=== PATIENT | male | born 1955 | race Caucasian/White ===

== ENCOUNTER 2017-08-01 14:47 | Emergency (ER) | payer OTHER ==
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
[2017-08-01] MEDS ORDERED: METHOCARBAMOL 500 MG TAB ONE (17:25)
[2017-08-01] MEDS ORDERED: HYDROCODONE/APAP 10/325 TAB ONE (17:25)
--- NOTE | 2017-08-01 18:01 | RAD REPORT ---
EXAM DESCRIPTION: RAD - Elbow Right 3 View - 08/01/2017 3:15 pm CLINICAL HISTORY: Right elbow pain FINDINGS: No fracture or dislocation is seen
--- NOTE | 2017-08-01 18:02 | RAD REPORT ---
EXAM DESCRIPTION: RAD - Forearm Right - 08/01/2017 3:16 pm CLINICAL HISTORY: Right arm pain FINDINGS: No fracture is seen.
== END 2017-08-01 17:46 | disposition home or self-care (01) ==
LOC: ER 14:47
DX: S50.11XA Contusion of right forearm, initial encounter (principal); V43.52XA Car driver injured in collision with other type car in traffic accident, initial encounter; Y93.89 Activity, other specified; Y92.410 Unspecified street and highway as the place of occurrence of the external cause; Z88.0 Allergy status to penicillin; I10 Essential (primary) hypertension; E78.5 Hyperlipidemia, unspecified
CPT/HCPCS: 99285

== ENCOUNTER 2023-09-06 19:09 | Emergency (ER) | payer OTHER ==
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
--- NOTE | 2023-09-06 19:34 | ER ---
Nurse's Notes [facility] Name: Eleno Genao Age: 68 yrs Sex: Male : 1955 Arrival Date: 09/06/2023 Time: 19:09 Bed IW2 Private MD: Diagnosis: Superficial laceration of the face 1 cm Presentation: 09/05 19:26 Chief complaint: Patient states: Cut by the corner of the truck's door on the left nj1 cheek when the door got caught by the wind. Non active bleeding noted. Coronavirus screen: Vaccine status: Patient reports receiving the 2nd dose of the covid vaccine. Ebola Screen: Patient denies travel to an Ebola-affected area in the 21 days before illness onset. Initial Sepsis Screen: Does the patient meet any 2 criteria? No. Patient's initial sepsis screen is negative. Does the patient have a suspected source of infection? No. Patient's initial sepsis screen is negative. Risk Assessment: Do you want to hurt yourself or someone else? Patient reports no desire to harm self or others. Onset of symptoms was September 06, 2023. 19:26 Method Of Arrival: Ambulatory [facility] 19:26 Acuity: JUAN CARLOS 5 [facility] Triage Assessment: 19:31 General: Appears in no apparent distress. comfortable, Behavior is calm, cooperative, nj appropriate for age. Pain: Denies pain. Neuro: Level of Consciousness is awake, alert, obeys commands, Oriented to person, place, time, situation. Cardiovascular: Patient's skin is warm and dry. Respiratory: Airway is patent Respiratory effort is even, unlabored. Injury Description: Abrasion sustained to left zygomatic area. Historical: - Allergies: 19:30 PENICILLINS; nj1 - PMHx: 19:30 Hyperlipidemia; Hypertension; nj1 - Immunization history:: Last tetanus immunization: unknown. - Infectious Disease History:: Denies. - Social history:: Smoking status: Patient denies any tobacco usage or history of. Screenin:[facility] ED Fall Risk Assessment (Adult) History of falling in the last 3 months, lg3 including since admission No falls in past 3 months (0 pts) Confusion or Disorientation No (0 pts) Intoxicated or Sedated No (0 pts) Impaired Gait No (0 pts) Mobility Assist Device Used No (0 pt) Altered Elimination No (0 pt) Score/Fall Risk Level 0 - 2 = Low Risk Oriented to surroundings, Maintained a safe environment, Educated pt \T\ family on fall prevention, incl call for assistance when getting out of bed, Assessed \T\ reinforced patient's understanding of fall precautions. Abuse screen: Denies threats or abuse. Denies injuries from another. Nutritional screening: No deficits noted. Tuberculosis screening: No symptoms or risk factors identified. Assessment: 19:38 General: Appears in no apparent distress. comfortable, Behavior is calm, cooperative. lg3 Pain: Denies pain. Neuro: No deficits noted. Jarquin Agitation-Sedation Scale (RASS): 0 - Alert and Calm Level of Consciousness is awake, alert, obeys commands, Oriented to person, place, time, situation. Cardiovascular: No deficits noted. Denies chest pain, shortness of breath, Capillary refill < 3 seconds Clubbing of nail beds is absent JVD is absent Patient's skin is warm and dry. Respiratory: No deficits noted. Airway is patent Respiratory effort is even, unlabored, Respiratory pattern is regular, symmetrical. GI: No deficits noted. No signs and/or symptoms were reported involving the gastrointestinal system. : No deficits noted. No signs and/or symptoms were reported regarding the genitourinary system. EENT: No deficits noted. No signs and/or symptoms were reported regarding the EENT system. Derm: Skin is intact, is healthy with good turgor, Skin is dry, Skin is normal, Skin temperature is warm Wound noted left zygomatic area Wound is linear abrasian. Musculoskeletal: No deficits noted. No signs and/or symptoms reported regarding the musculoskeletal system. Circulation, motion, and sensation intact. Range of motion: intact in all extremities. Vital Signs: 19:26 BP 125 / 62; Pulse 59; Resp 17; Temp 98.4(O); Pulse Ox 100% ; Weight 85.28 kg; Height 5 nj1 ft. 9 in. ; 19:40 BP 117 / 62; Pulse 55; Resp 16 S; Temp 98.4(O); Pulse Ox 100% on R/A; lg3 19:26 Body Mass Index 27.76 (85.28 kg, 175.26 cm) nj1 ED Course: 19:12 Patient arrived in ED. mr 19:29 Zonia Barajas MD is Attending Physician. sp3 19:30 Triage completed. nj1 19:32 Arm band placed on left wrist. nj1 19:38 Patient has correct armband on for positive identification. lg3 19:38 No provider procedures requiring assistance completed. Patient did not have IV access lg3 during this emergency room visit. Wound care: to abrasion, located on left zygomatic area was cleaned with soap and water, dressed with Neosporin, band aid, Patient tolerated well. Administered Medications: 19:37 Not Given (Other Intervention Used): bacitracinointment (500 unit/g) 1 application lg3 Topical once Medication: 19:38 VIS not applicable for this client. lg3 Outcome: 19:33 Discharge ordered by MD. sp3 19:43 Discharged to home ambulatory, lg3 19:43 Condition: stable 19:43 Discharge instructions given to patient, Instructed on discharge instructions, follow up and referral plans. wound care, Demonstrated understanding of instructions, follow-up care, wound care, 19:43 Patient left the ED. lg3 Signatures: Krissy Blackman, Reg Reg Anastasiia Richards, RN RN lg3 Zonia Barajas MD MD sp3 Mary Ellen Banerjee RN RN nj1
[2023-09-06 19:54] VITALS: TEMP 98.4; O2SAT 100
[2023-09-06 19:55] VITALS: BP 117/62
== END 2023-09-06 19:43 | disposition home or self-care (01) ==
LOC: ER 19:09
DX: S01.81XA Laceration without foreign body of other part of head, initial encounter (principal); W22.8XXA Striking against or struck by other objects, initial encounter
CPT/HCPCS: 99283